=== PATIENT | female | born 1955 | race Caucasian/White ===

== ENCOUNTER 2020-05-20 06:36 | Emergency (ER) | payer MEDICARE ==
[~2020-05-20] VITALS: Ht 170.2 cm; Wt 118.7 kg
[2020-05-20] MEDS ORDERED: ketorolac trometh. 30mg/ml inj. IV ONE (06:50)
[2020-05-20] MEDS ORDERED: normal saline 1000ML IV soln IVB ONE (06:50)
[2020-05-20 07:42] LABS: CLARITY,URINE CLOUDY (Clear); COLOR,URINE YELLOW (Yellow); GLUCOSE, URINE NEGATIVE (Neg); KETONES,URINE NEGATIVE (Neg); LEUKOCYTE ESTERASE ,URINE TRACE (Neg); NITRITES, URINE NEGATIVE (Neg); OCCULT BLOOD,URINE LARGE (Neg); PH,URINE 5.5 (4.8-8.0); PROTEIN,URINE 30 mg/dl (Neg); UROBILINOGEN,URINE 0.2 E.U/dL (0.2-1.0)
[2020-05-20 07:52] LABS: UA COLLECTION TYPE CLN CATCH MIDSTREAM
[2020-05-20 08:16] LABS: BASOPHILS # (AUTO) 0.1 X10'3 (0-0.2); BASOPHILS % (AUTO) 0.6 % (0-1); EOSINOPHILS # (AUTO) 0.1 X10'3 (0-0.9); EOSINOPHILS % (AUTO) 0.8 % (0-6); HEMATOCRIT 42.9 % (35.0-45.0); HEMOGLOBIN 14.7 g/dl (12.0-16.0); LYMPHOCYTES # (AUTO) 0.7 X10'3 (1.1-4.8); LYMPHOCYTES % (AUTO) 6.7 % (21-51); MEAN CORPUSCULAR HEMOGLOBIN 31.7 PG (27.0-31.0); MEAN CORPUSCULAR HGB CONC 34.3 g/dL (33.0-36.5); MEAN CORPUSCULAR VOLUME 92.3 FL (78-98); MEAN PLATELET VOLUME 9.4 FL (7.4-10.4); MONOCYTES # (AUTO) 0.8 X10'3 (0-0.9); MONOCYTES % (AUTO) 7.8 % (2-12); NEUTROPHILS # (AUTO) 8.6 X10'3 (1.8-7.7); NEUTROPHILS % (AUTO) 84.1 % (42-75); PLATELET COUNT 221 X10'3 (140-440); RED BLOOD COUNT 4.65 X10'6 (4.20-5.60); RED CELL DISTRIBUTION WIDTH 14.1 % (11.5-14.5); WHITE BLOOD COUNT 10.3 X10'3 (4.5-11.0)
[2020-05-20] MEDS ORDERED: levoFLOXACIN 250mg tablet PO ONE (08:20)
[2020-05-20 08:29] LABS: BACTERIA,URINE NONE SEEN /HPF (Neg); RBC,URINE TNTC /HPF (0-2); SQUAMOUS EPITHELIAL CELL,UR FEW /LPF (FEW); WBC,URINE 0-4 /HPF (0-4)
[2020-05-20] MEDS ORDERED: TADA20TA PO (08:34)
[2020-05-20] MEDS ORDERED: KETO10TA2 PO (08:34)
[2020-05-20] MEDS ORDERED: ONDA4TAB6 PO (08:34)
[2020-05-20] MEDS ORDERED: HYDR-4353 PO (08:34)
[2020-05-20 08:43] LABS: ALANINE AMINOTRANSFERASE 23 U/L (12-78); ALBUMIN 3.9 G/DL (3.4-5.0); ALKALINE PHOSPHATASE 88 IU/L (46-116); ANION GAP 9 (8-16); ASPARTATE AMINO TRANSFERASE 21 U/L (10-37); BILIRUBIN,TOTAL 0.6 MG/DL (0.1-1.0); BLOOD UREA NITROGEN 23 MG/DL (7-18); BUN/CREATININE RATIO 20.5 (6.6-38.0); CHLORIDE 101 MMOL/L (99-107); CREATININE 1.12 MG/DL (0.40-0.90); GLUCOSE 114 MG/DL (70-104); LIPASE 97 U/L (73-393); POTASSIUM 3.6 MMOL/L (3.5-5.1); SODIUM 138 MMOL/L (135-145); TOTAL CARBON DIOXIDE 27.7 MMOL/L (24-32); eGFR 49 ML/MIN
[2020-05-20] MEDS ORDERED: HYDROcodone/acetaminophen 10/325mg tab PO ONE (08:55)
[2020-05-20] MEDS ORDERED: ondansetron 4mg rapidly disintigrating tab PO ONE (08:55)
[2020-05-20 09:06] VITALS: BP 151/64
--- NOTE | 2020-05-23 13:36 | NUR ---
CALLED PT. SHE IS VOMITING EVERY TIME SHE EATS, SHE HAD A FEVER YESTERDAY BUT NOT TODAY. PT HAS PAIN MEDICATIONS AND SAID HER PAIN IS TOLLERABLE. I ASKED FOR THE NAME OF THE PHARMACY TO CALL IN LEVAQUIN 750MG DAILY FOR 5 DAYS. SHE STATED THAT SHE SAW A UROLOGIST YESTERDAY AND THEY WERE TRYING TO SCHEDULE HER FOR SURGERY TO REMOVE HER KIDNEY STONE. I TOLD HER I WOULD CALL HIS OFFICE AND GIVE THEM THIS INFORMATION AND SEE WHAT HE WANTED TO DO. DR. DIXON KAMARA
--- NOTE | 2020-05-24 10:15 | NUR ---
CALLED DR. DIXON CONKLIN OFFICE. THEY DID RECEIVE THE PT'S URINE CULTURE. THEY STATED THAT THE PC INSTALLATION ENGINEER RECEIVED IT AND FORWARD IT EMERGENTLY TO DR. KAMARA.
== END 2020-05-20 09:44 | disposition home or self-care (01) ==
LOC: ER 06:37
DX: N20.0 Calculus of kidney (principal); N13.30 Unspecified hydronephrosis; N28.9 Disorder of kidney and ureter, unspecified; Z79.2 Long term (current) use of antibiotics; Z88.8 Allergy status to other drugs, medicaments and biological substances; Z79.899 Other long term (current) drug therapy; M54.5 Low back pain
CPT/HCPCS: 36415; 74176; 80053; 81001; 83690; 85025; 87077; 87088; 87186; 96361; 96374; 99284; J1885; J7030; 96375